=== PATIENT | male | born 1985 | race African-American/Black ===

== ENCOUNTER 2021-07-03 10:05 | Emergency (ER) | payer OTHER ==
[~2021-07-03] VITALS: Ht 182.9 cm; Wt 86.4 kg
[2021-07-03 12:45] VITALS: BP 116/69
== END 2021-07-03 14:10 | disposition home or self-care (01) ==
LOC: EMS 10:08
DX: S00.31XA Abrasion of nose, initial encounter (principal); F10.129 Alcohol abuse with intoxication, unspecified; W19.XXXA Unspecified fall, initial encounter; Y93.01 Activity, walking, marching and hiking; Y92.89 Other specified places as the place of occurrence of the external cause; Y99.8 Other external cause status
CPT/HCPCS: 72040; 99283